=== PATIENT | male | born 1950 | race Caucasian/White ===

== ENCOUNTER → 2019-04-23 | Outpatient (CLI) | payer OTHER ==
[~2019-04-23] MED LIST: FLOMAX0.4 MG PO; NKHM; PERCOCET 325 MG1 TA2 PO
== END | disposition home or self-care (01) ==
LOC: MRI 07:21
DX: M47.816 Spondylosis without myelopathy or radiculopathy, lumbar region (principal); M48.061 Spinal stenosis, lumbar region without neurogenic claudication; R20.2 Paresthesia of skin; K40.90 Unilateral inguinal hernia, without obstruction or gangrene, not specified as recurrent; M79.605 Pain in left leg